=== PATIENT | female | born 1955 | race Caucasian/White ===

== ENCOUNTER → 2017-03-31 | Outpatient (CLI) | payer MEDICARE, OTHER ==
[2017-03-31 08:38] LABS: CREATININE 0.7 mg/dL (0.6-1.3)
== END ==
LOC: M.LAB 08:16 → M.CT 09:30
PROVIDERS: Nurse Practitioner Adult Health
DX: N28.1 Cyst of kidney, acquired (principal); N20.0 Calculus of kidney; J98.11 Atelectasis; J98.4 Other disorders of lung; J84.10 Pulmonary fibrosis, unspecified; N13.39 Other hydronephrosis; M47.896 Other spondylosis, lumbar region